=== PATIENT | male | born 1965 | race Caucasian/White ===

== ENCOUNTER 2017-04-05 14:32 | Emergency (ER) | payer BC ==
[2017-04-05 14:39] VITALS: BP 146/93
--- NOTE | 2017-04-05 15:21 | RAD ---
INDICATION: Left ankle pain COMPARISON: None TECHNIQUE: AP, lateral, and oblique views were obtained. FINDINGS: There is no acute fracture. The ankle mortise is intact There is mild lateral soft tissue swelling. IMPRESSION: LATERAL SOFT TISSUE SWELLING.
--- NOTE | 2017-04-05 18:29 | UC ---
Robel Chino Tiffany, scribed for Santi Damon MD on 04/05/17 at 1539 . Lower Extremity/Ankle HPI - HPI Summary HPI Summary: This patient is a 52 year old M presenting to [facility] [place] with a chief complaint of left ankle pain s/p twisting his ankle while carrying something and going downhill yesterday. Symptoms aggravated by movement. Symptoms alleviated by nothing. Patient reports swelling on his left ankle. Patient denies prior issues with his ankle. - History of Current Complaint Chief Complaint: UCLowerExtremity Stated Complaint: ANKLE INJURY Time Seen by Provider: 04/05/17 14:47 Hx Obtained From: Patient Onset/Duration: Lasting Days - Yesterday, Still Present Aggravating Factor(s): Other - Movement Alleviating Factor(s): Nothing - Allergies/Home Medications Allergies/Adverse Reactions: Allergies Allergy/AdvReac Type Severity Reaction Status Date / Time ENVIRONMENTAL Allergy SNEEZING, Uncoded 04/05/17 14:39 ITCHY EYES PMH/Surg Hx/FS Hx/Imm Hx Previously Healthy: No Other Endocrine History: NEGATIVE: Diabetes Other Cardiovascular History: NEGATIVE: HTN - Surgical History Surgical History: None - Family History Known Family History: Positive: None - Social History Alcohol Use: Occasionally Alcohol Amount: 2-3 PER DAY Substance Use Type: None Smoking Status (MU): Heavy Every Day Tobacco Smoker Amount Used/How Often: 1 PACK A DAY Have You Smoked in the Last Year: Yes - Immunization History Most Recent Influenza Vaccination: none Review of Systems Constitutional: Negative - Fever, chills Musculoskeletal: Other: - Left ankle pain All Other Systems Reviewed And Are Negative: Yes Physical Exam Triage Information Reviewed: Yes Vital Signs: Initial Vital Signs Temp 98.5 F 04/05/17 14:34 Pulse 101 04/05/17 14:34 Resp 16 04/05/17 14:34 BP 146/93 04/05/17 14:34 Pulse Ox 100 04/05/17 14:34 Vital Signs Reviewed: Yes - Additional Comments General: well-appearing, no pain distress Skin: warm, color reflects adequate perfusion, dry Head: normal Eyes: EOMI, ARMIDA ENT: normal Neck: supple, nontender Respiratory: CTA, breath sounds present Cardiovascular: RRR Abdomen: soft, nontender Bowel: present Musculoskeletal: Swelling at left distal lateral malleolus, left ankle pain with motion, left ankle tenderness over swelling Neurological: normal, sensory/motor intact, A&O x3 Psychological: affect/mood appropriate Diagnostics - Radiology Ankle Radiology Interpretation Completed By: Radiologist - LATERAL SOFT TISSUE SWELLING. ED physician has reviewed this report and agrees. Lower Extremity Course/Dx - Course Course Of Treatment: BP noted and advised to follow up with PCP. Allergies noted. Medications reviewed. DISCUSSED RESULTS WITH PATIENT. - Differential Dx/Diagnosis Provider Diagnoses: LEFT ANKLE SPRAIN Discharge - Discharge Plan Condition: Stable Disposition: HOME Patient Education Materials: Ankle Sprain (ED) Referrals: John Burgos MD [Primary Care Provider] - Additional Instructions: FOLLOW UP WITH YOUR DOCTOR. GET RECHECKED FOR ANY WORSENING OF YOUR CONDITION OR QUESTIONS OR CONCERNS. The documentation as recorded by the Robel rodríguez Tiffany accurately reflects the service I personally performed and the decisions made by me, Santi Damon MD.
== END 2017-04-05 15:40 | disposition home or self-care (01) ==
LOC: UCEAST 14:32
DX: S93.402A Sprain of unspecified ligament of left ankle, initial encounter (principal); X50.1XXA Overexertion from prolonged static or awkward postures, initial encounter; Y93.01 Activity, walking, marching and hiking; Y92.9 Unspecified place or not applicable; Y99.9 Unspecified external cause status
CPT/HCPCS: 99213; G0463

== ENCOUNTER 2017-06-07 15:01 | Emergency (ER) | payer BC ==
[2017-06-07 15:27] VITALS: BP 140/81
--- NOTE | 2017-06-07 17:45 | UC ---
Vinny Chino Natalie, scribed for Santi Damon MD on 06/07/17 at 1745 . Dental HPI - HPI Summary HPI Summary: The pt is a 52 y/o M presenting to c/o soreness in left cheek region starting a week ago worsening in the last few days ago. The pain is rated 3/10. Pt additionally c/o swelling in left cheek. Pt denies teeth pain, ear pain, pain when eating, and difficulty swallowing. - History of Current Complaint Chief Complaint: UCDentalProblem Stated Complaint: CHEEK SORE,INFLAMED Time Seen by Provider: 06/07/17 16:04 Hx Obtained From: Patient Onset/Duration: Lasting Days, Still Present Severity: Mild Pain Intensity: 3 Pain Scale Used: 0-10 Numeric Aggravating Factor(s): Nothing Alleviating Factor(s): Nothing - Allergies/Home Medications Allergies/Adverse Reactions: Allergies Allergy/AdvReac Type Severity Reaction Status Date / Time ENVIRONMENTAL Allergy SNEEZING, Uncoded 06/07/17 15:23 ITCHY EYES PMH/Surg Hx/FS Hx/Imm Hx - Surgical History Surgical History: Yes Surgery Procedure, Year, and Place: hernia - Family History Known Family History: Positive: Other - pt is unsure because he is adopted - Social History Alcohol Use: Occasionally Alcohol Amount: 2-3 PER DAY Substance Use Type: None Smoking Status (MU): Heavy Every Day Tobacco Smoker Amount Used/How Often: 1 PACK A DAY Have You Smoked in the Last Year: Yes - Immunization History Most Recent Influenza Vaccination: none Review of Systems Constitutional: Other - NEGATIVE: fever ENT: Other - POSITIVE: left cheek pain and swelling; NEGATIVE: ear pain, dental pain, pain when eating, difficulty swallowing All Other Systems Reviewed And Are Negative: Yes Physical Exam Triage Information Reviewed: Yes Appearance: Well-Appearing, No Pain Distress Vital Signs: Initial Vital Signs Temp 97.8 F 06/07/17 15:24 Pulse 76 06/07/17 15:24 Resp 17 06/07/17 15:24 BP 140/81 06/07/17 15:24 Pulse Ox 99 06/07/17 15:24 Vital Signs Reviewed: Yes Eye Exam: Normal ENT: Positive: Normal ENT inspection Dental: Positive: Other: - swellin in left cheek at level of upper molars Neck: Positive: Supple, Nontender Respiratory: Positive: Other: - CTA, breath sounds present Cardiovascular: Positive: RRR Abdomen Description: Positive: Nontender, Soft Bowel Sounds: Positive: Present Musculoskeletal Exam: Normal Musculoskeletal: Positive: Strength Intact, ROM Intact Neurological: Positive: Other: - normal, sensory/motor intact, A&O x3 Psychological: Positive: Other: - affect/mood appropriate Skin: Positive: Other - warm, color reflects adequate perfusion, dry Dental Complaint Course/Dx - Course Course Of Treatment: Medications reviewed. Allergies noted. - Differential Dx/Diagnosis Provider Diagnoses: DENTAL ABSCESS Discharge - Discharge Plan Condition: Stable Disposition: HOME Prescriptions: Amoxicillin/Clavulanate TAB* [Augmentin TAB 875*] 875 mg PO BID #20 tab Patient Education Materials: Dental Abscess (ED) Referrals: John Burgos MD [Primary Care Provider] - Additional Instructions: FOLLOW UP WITH YOUR DENTIST. GET RECHECKED FOR ANY WORSENING OF YOUR CONDITION OR QUESTIONS OR CONCERNS. The documentation as recorded by the Vinny rodríguez Natalie accurately reflects the service I personally performed and the decisions made by , Santi Damon MD.
== END 2017-06-07 16:28 | disposition home or self-care (01) ==
LOC: UCEAST 15:01
DX: K04.7 Periapical abscess without sinus (principal); F17.210 Nicotine dependence, cigarettes, uncomplicated
CPT/HCPCS: 99212; G0463